=== PATIENT | female | born 1980 | race Caucasian/White ===

== ENCOUNTER 2017-12-24 12:42 | Emergency (ER) | payer MEDICAID ==
[~2017-12-24] VITALS: Ht 160 cm; Wt 97.5 kg
[~2017-12-24 12:42] MED LIST: ALLERCLEAR10 MG PO; BALZIVA1 EACH; BENZTROPINE MES1 MG PO; CLOTRIMAZOLE AF30 GM TOP; DESMOPRESSIN A0.2 M2 PO; DIFLUCAN150 M1 PO; GLUCOPHAGE1000 MG PO; INVOKANA100 MG PO; LEXAPRO20 MG PO; LOVASTATIN 20 M20 MG PO; MINOCYCLINE HC100 M2 PO; NYSTATIN CREAM; OLANZAPINE ODT5 MG PO; PROPRANOLOL 1010 MG PO; RISPERDAL2 MG PO; TOPAMAX 100 MG100 MG PO; TOPAMAX25 M1 PO; ZYPREXA20 MG PO
[2017-12-24] MEDS ORDERED: VICTOZA0.6 MG/0.1 SUBQ (12:50)
[2017-12-24] MEDS ORDERED: LIPITOR10 MG PO (12:50)
[2017-12-24] MEDS ORDERED: LANTUS100 UNIT/M SUBQ (12:51)
[2017-12-24 13:21] LABS: URINE BILIRUBIN NEGATIVE (Negative); URINE BLOOD TRACE (Negative); URINE CLARITY CLEAR; URINE COLOR YELLOW; URINE GLUCOSE-RANDOM 3+ (Negative); URINE KETONES NEGATIVE (Negative); URINE LEUKOCYTES-REFLEX NEGATIVE (Negative); URINE NITRITE-REFLEX NEGATIVE (Negative); URINE PROTEIN NEGATIVE (Negative); URINE UROBILINOGEN 0.2 E.U./dl (0.2-1.0)
[2017-12-24 14:00] LABS: ABSOLUTE BASOPHILS 0.1 thou/uL (0.0-0.2); ABSOLUTE EOSINOPHILS 0.1 thou/uL (0.0-0.7); ABSOLUTE LYMPHOCYTES 1.9 thou/uL (0.8-5.3); ABSOLUTE MONOCYTES 0.3 thou/uL (0.0-1.2); ABSOLUTE NEUTROPHILS 3.7 thou/uL (1.6-8.1); BASOPHILS 0.8 %; EOSINOPHILS 2.4 %; HEMATOCRIT 37.7 % (37.0-47.0); HEMOGLOBIN 12.5 gm/dL (12.0-15.0); LYMPHOCYTES 31.1 %; MCH 27.6 pg (26.0-34.0); MCHC 33.1 g/dL (28.0-37.0); MCV 83.4 fL (80.0-100.0); MONOCYTES 4.6 %; MPV 7.3 fl. (7.2-11.1); NUCLEATED RBCS 0 /100WBC; PLATELET COUNT* 255 thou/uL (150-400); POLYS 61.1 %; RBC 4.52 mil/uL (4.20-5.00); WBC 6.1 thou/uL (4.0-11.0)
[2017-12-24 14:09] LABS: POTASSIUM 4.4 mmol/L (3.5-5.1)
[2017-12-24 14:19] LABS: TOTAL BILIRUBIN 0.3 mg/dL (<0.1-1.0); TOTAL PROTEIN 6.8 g/dL (6.4-8.2)
[2017-12-24 15:04] VITALS: BP 132/82
== END 2017-12-24 15:05 | disposition home or self-care (01) ==
LOC: M.ERS 12:42
PROVIDERS: Physician Assistant
DX: E11.65 Type 2 diabetes mellitus with hyperglycemia (principal); Z79.4 Long term (current) use of insulin

== ENCOUNTER 2018-02-28 15:43 | Emergency (ER) | payer MEDICAID ==
[~2018-02-28] VITALS: Ht 160 cm; Wt 100.2 kg
[~2018-02-28 15:43] MED LIST changes: +LANTUS100 UNIT/M SUBQ; +LIPITOR10 MG PO; +VICTOZA0.6 MG/0.1 SUBQ
[2018-02-28] MEDS ORDERED: ZYPREXA20 MG PO (16:06)
[2018-02-28 16:29] LABS: URINE BILIRUBIN NEGATIVE (Negative); URINE BLOOD NEGATIVE (Negative); URINE CLARITY CLEAR; URINE COLOR YELLOW; URINE GLUCOSE-RANDOM 3+ (Negative); URINE KETONES TRACE (Negative); URINE LEUKOCYTES-REFLEX NEGATIVE (Negative); URINE NITRITE-REFLEX NEGATIVE (Negative); URINE PROTEIN NEGATIVE (Negative); URINE SPECIFIC GRAVITY >= 1.030 (1.005-1.030); URINE UROBILINOGEN 0.2 E.U./dl (0.2-1.0)
[2018-02-28 16:43] LABS: AMP/METHAMP Negative (Negative); BARBITURATES Negative (Negative); BENZODIAZEPINES Negative (Negative); COCAINE Negative (Negative); METHADONE Negative (Negative); OPIATES Negative (Negative); PCP Negative (Negative); THC Negative (Negative)
[2018-02-28 16:50] LABS: ABSOLUTE EOSINOPHILS 0.1 thou/uL (0.0-0.7); ABSOLUTE LYMPHOCYTES 1.9 thou/uL (0.8-5.3); ABSOLUTE MONOCYTES 0.3 thou/uL (0.0-1.2); ABSOLUTE NEUTROPHILS 2.4 thou/uL (1.6-8.1); BASOPHILS 0.8 %; EOSINOPHILS 2.5 %; HEMATOCRIT 38.6 % (37.0-47.0); HEMOGLOBIN 12.4 gm/dL (12.0-15.0); LYMPHOCYTES 39.3 %; MCH 26.4 pg (26.0-34.0); MCHC 32.2 g/dL (28.0-37.0); MCV 82.2 fL (80.0-100.0); MONOCYTES 6.4 %; MPV 7.2 fl. (7.2-11.1); NUCLEATED RBCS 0 /100WBC; PLATELET COUNT* 288 thou/uL (150-400); RBC 4.69 mil/uL (4.20-5.00); RDW-CV 13.9 % (10.5-14.5); WBC 4.7 thou/uL (4.0-11.0)
[2018-02-28 16:59] LABS: CALCIUM 8.9 mg/dL (8.5-10.1); CREATININE 1.2 mg/dL (0.6-1.3); POTASSIUM 4.8 mmol/L (3.5-5.1)
[2018-02-28 17:04] LABS: TOTAL BILIRUBIN 0.2 mg/dL (<0.1-1.0); TOTAL PROTEIN 7.1 g/dL (6.4-8.2)
[2018-02-28 17:13] LABS: SALICYLATE < 2.8 mg/dL (2.8-20.0)
[2018-02-28 17:18] LABS: ACETAMINOPHEN < 2 ug/mL (10-30); ALCOHOL < 10 mg/dL (<10)
[2018-02-28 18:52] VITALS: BP 121/80
== END 2018-02-28 18:53 | disposition home or self-care (01) ==
LOC: M.ERS 15:43
PROVIDERS: Emergency Medicine Emergency Medical Services
DX: F32.9 Major depressive disorder, single episode, unspecified (principal); E11.9 Type 2 diabetes mellitus without complications; F25.9 Schizoaffective disorder, unspecified; F84.0 Autistic disorder

== ENCOUNTER 2018-03-05 19:07 | Emergency (ER) | payer MEDICAID ==
[~2018-03-05] VITALS: Ht 160 cm; Wt 97.5 kg
[2018-03-05 19:28] LABS: URINE BLOOD 2+ (Negative); URINE CLARITY CLEAR; URINE COLOR YELLOW; URINE GLUCOSE-RANDOM NEGATIVE (Negative); URINE KETONES NEGATIVE (Negative); URINE LEUKOCYTES-REFLEX NEGATIVE (Negative); URINE NITRITE-REFLEX NEGATIVE (Negative); URINE PROTEIN 1+ (Negative); URINE SPECIFIC GRAVITY >= 1.030 (1.005-1.030); URINE UROBILINOGEN 0.2 E.U./dl (0.2-1.0)
[2018-03-05 19:30] LABS: ICTOTEST (BILI CONFIRMATORY) Negative (Negative); URINE BILIRUBIN 1+ (Negative)
[2018-03-05 19:32] LABS: AMP/METHAMP Negative (Negative); BARBITURATES Negative (Negative); BENZODIAZEPINES Negative (Negative); COCAINE Negative (Negative); METHADONE Negative (Negative); OPIATES Negative (Negative); PCP Negative (Negative); THC Negative (Negative)
[2018-03-05 19:36] LABS: AMORPHOUS URATES Few /LPF (None Seen); HYALINE CASTS 0-3 Few /LPF (None Seen); MUCUS >6 Heavy strn/LPF (None Seen); SQUAMOUS >10 Many /LPF (0-3); URINE RBC 0-2 Rare /HPF (0-2); URINE WBC-REFLEX 6-15 Few /HPF (0-5)
[2018-03-05 19:41] LABS: ABSOLUTE BASOPHILS 0.1 thou/uL (0.0-0.2); ABSOLUTE EOSINOPHILS 0.1 thou/uL (0.0-0.7); ABSOLUTE LYMPHOCYTES 2.4 thou/uL (0.8-5.3); ABSOLUTE MONOCYTES 0.3 thou/uL (0.0-1.2); ABSOLUTE NEUTROPHILS 3.1 thou/uL (1.6-8.1); BASOPHILS 0.9 %; EOSINOPHILS 2.5 %; HEMATOCRIT 41.3 % (37.0-47.0); HEMOGLOBIN 13.5 gm/dL (12.0-15.0); LYMPHOCYTES 39.2 %; MCH 26.9 pg (26.0-34.0); MCHC 32.8 g/dL (28.0-37.0); MCV 82.1 fL (80.0-100.0); MONOCYTES 5.7 %; MPV 7.6 fl. (7.2-11.1); NUCLEATED RBCS 0 /100WBC; PLATELET COUNT* 323 thou/uL (150-400); POLYS 51.7 %; RBC 5.03 mil/uL (4.20-5.00); RDW-CV 13.6 % (10.5-14.5); WBC 6.1 thou/uL (4.0-11.0)
[2018-03-05 19:49] LABS: CALCIUM 9.4 mg/dL (8.5-10.1); CREATININE 1.4 mg/dL (0.6-1.3); POTASSIUM 4.1 mmol/L (3.5-5.1)
[2018-03-05 19:53] LABS: ALBUMIN 3.2 g/dL (3.4-5.0); TOTAL BILIRUBIN 0.3 mg/dL (<0.1-1.0); TOTAL PROTEIN 7.2 g/dL (6.4-8.2)
[2018-03-05 20:00] LABS: SALICYLATE < 2.8 mg/dL (2.8-20.0)
[2018-03-05 20:01] LABS: ACETAMINOPHEN < 2 ug/mL (10-30); ALCOHOL < 10 mg/dL (<10)
[2018-03-06 22:07] VITALS: BP 131/78
== END 2018-03-06 22:09 | disposition home or self-care (01) ==
LOC: M.ERS
PROVIDERS: Emergency Medicine
DX: R45.851 Suicidal ideations (principal); E11.9 Type 2 diabetes mellitus without complications; F32.9 Major depressive disorder, single episode, unspecified; F84.0 Autistic disorder

== ENCOUNTER 2018-08-19 09:08 | Emergency (ER) | payer MEDICAID ==
[~2018-08-19] VITALS: Ht 160 cm; Wt 112.5 kg
[2018-08-19] MEDS ORDERED: NOVOLOG100 UNIT/1 SUBQ (09:18)
[2018-08-19 09:30] LABS: ABSOLUTE EOSINOPHILS 0.1 thou/uL (0.0-0.7); ABSOLUTE LYMPHOCYTES 1.6 thou/uL (0.8-5.3); ABSOLUTE MONOCYTES 0.3 thou/uL (0.0-1.2); BASOPHILS 0.9 %; EOSINOPHILS 2.9 %; HEMATOCRIT 40.4 % (37.0-47.0); HEMOGLOBIN 13.4 gm/dL (12.0-15.0); MCH 26.9 pg (26.0-34.0); MCV 81.4 fL (80.0-100.0); MONOCYTES 6.5 %; MPV 8.2 fl. (7.2-11.1); NUCLEATED RBCS 0 /100WBC; PLATELET COUNT* 249 thou/uL (150-400); POLYS 57.7 %; RBC 4.97 mil/uL (4.20-5.00); RDW-CV 15.6 % (10.5-14.5); WBC 5.1 thou/uL (4.0-11.0)
[2018-08-19 09:37] LABS: CREATININE 1.1 mg/dL (0.6-1.3); POTASSIUM 4.4 mmol/L (3.5-5.1)
[2018-08-19 09:42] LABS: ALBUMIN 3.2 g/dL (3.4-5.0); TOTAL BILIRUBIN 0.2 mg/dL (<0.1-1.0)
[2018-08-19 10:36] LABS: URINE BILIRUBIN NEGATIVE (Negative); URINE BLOOD TRACE (Negative); URINE CLARITY CLEAR; URINE COLOR YELLOW; URINE GLUCOSE-RANDOM NEGATIVE (Negative); URINE KETONES NEGATIVE (Negative); URINE LEUKOCYTES-REFLEX TRACE (Negative); URINE NITRITE-REFLEX NEGATIVE (Negative); URINE PROTEIN NEGATIVE (Negative); URINE UROBILINOGEN 0.2 E.U./dl (0.2-1.0)
[2018-08-19 10:43] LABS: BACTERIA-REFLEX 1-9 Few /HPF (None Seen); SQUAMOUS 0-3 Few /LPF (0-3); URINE RBC 0-2 Rare /HPF (0-2); URINE WBC-REFLEX 0-5 Rare /HPF (0-5)
[2018-08-19 10:44] LABS: CASTS None Seen /LPF (None Seen); CRYSTALS None Seen /LPF (None Seen); MUCUS None Seen strn/LPF (None Seen)
[2018-08-19 10:46] LABS: AMP/METHAMP Negative (Negative); BARBITURATES Negative (Negative); BENZODIAZEPINES Negative (Negative); COCAINE Negative (Negative); METHADONE Negative (Negative); OPIATES Negative (Negative); PCP Negative (Negative); THC Negative (Negative)
[2018-08-19 11:41] VITALS: BP 156/80
--- NOTE | 2018-08-21 15:31 | EKG ---
[place] [address] ELECTROCARDIOGRAM REPORT Name: WENDYLULU Sebastian Room: [place]#: [id number] Admission: 08/19/18 Attend Phys: Discharge: 08/19/18 Date of : 84 Report #: [id number] THIS REPORT FOR: //name// [facility] ED Test Date: 2018-08-19 Test Time: 09:15:14 Pat Name: LULU NGUYEN Department: Room: Gender: F [employer]pper Machine Operator: : 1980 Requested By: Ann Marie Ashraf Order Number: [id number] MD: Brennen Gregg Measurements Intervals [place] Rate: 64 P: 29 OR: 156 QRS: 61 QRSD: 94 T: 22 QT: 389 QTc: 402 Interpretive Statements Sinus rhythm RSR' in V1 or V2, right VCD or RVH No previous ECG available for comparison Electronically Signed On 08-21-2018 15:31:07 GRIND OPERATOR by Brennen Gregg [email or web address] <ELECTRONICALLY SIGNED> By: Brennen Gregg MD, [facility] 08/21/18 1531 0915 4 Brennen Gregg MD, FACC /EPI
== END 2018-08-19 11:41 | disposition home or self-care (01) ==
LOC: M.ERS 09:08
PROVIDERS: Personal Emergency Response Attendant
DX: R00.2 Palpitations (principal); E11.9 Type 2 diabetes mellitus without complications; F32.9 Major depressive disorder, single episode, unspecified; Z79.4 Long term (current) use of insulin; Z79.899 Other long term (current) drug therapy

== ENCOUNTER 2019-03-17 09:08 | Emergency (ER) | payer MEDICAID ==
[~2019-03-17] VITALS: Ht 165.1 cm; Wt 108.9 kg
[~2019-03-17 09:08] MED LIST changes: +NOVOLOG100 UNIT/1 SUBQ
[2019-03-17] MEDS ORDERED: BACTRIM DS TAB1 EACH PO (10:14)
[2019-03-17] MEDS ORDERED: KEFLEX500 M1 PO (10:14)
[2019-03-17 10:43] VITALS: BP 152/91
== END 2019-03-17 10:44 | disposition home or self-care (01) ==
LOC: M.ERS 09:08
DX: L02.214 Cutaneous abscess of groin (principal); E11.9 Type 2 diabetes mellitus without complications; F32.9 Major depressive disorder, single episode, unspecified

== ENCOUNTER 2019-11-28 10:24 | Emergency (ER) | payer MEDICAID ==
[~2019-11-28] VITALS: Ht 160 cm; Wt 94.3 kg
[~2019-11-28 10:24] MED LIST changes: +BACTRIM DS TAB1 EACH PO; +KEFLEX500 M1 PO
[2019-11-28 10:35] VITALS: BP 131/83
[2019-11-28] MEDS ORDERED: INVEGA6 MG PO (10:42)
[2019-11-28] MEDS ORDERED: BACTRIM DS TAB1 EACH PO (10:56)
[2019-11-28] MEDS ORDERED: KEFLEX500 M1 PO (10:56)
[2019-11-28] MEDS ORDERED: ZOFRAN ODT4 MG SUBLING (10:56)
[2019-11-28] MEDS ORDERED: NORCO 5-325 TA1 EAC1 PO (10:56)
[2019-11-28] MEDS ORDERED: DIFLUCAN150 MG PO (10:56)
== END 2019-11-28 11:18 | disposition home or self-care (01) ==
LOC: M.ERS 10:24
DX: L03.113 Cellulitis of right upper limb (principal); L02.411 Cutaneous abscess of right axilla; E11.9 Type 2 diabetes mellitus without complications; F32.9 Major depressive disorder, single episode, unspecified; F20.9 Schizophrenia, unspecified; Z79.4 Long term (current) use of insulin; Z79.899 Other long term (current) drug therapy

== ENCOUNTER → 2020-07-24 | Outpatient (CLI) | payer MEDICAID ==
[~2020-07-24] MED LIST changes: +DIFLUCAN150 MG PO; +INVEGA6 MG PO; +MACROBID 100 M100 M1 PO; +NORCO 5-325 TA1 EAC1 PO; +PYRIDIUM100 M1 PO; +VRAYLAR1.5 MG PO; +ZOFRAN ODT4 MG SUBLING
[2020-07-24 10:37] LABS: ANION GAP 11 mmol/L (7-16); BUN 15 mg/dL (7-18); CALCIUM 9.5 mg/dL (8.5-10.1); CHLORIDE 101 mmol/L (98-107); CHOLESTEROL 187 mg/dL (<200); CO2 25 mmol/L (21-32); GLUCOSE 103 mg/dL (70-99); HDL CHOLESTEROL 87 mg/dL (>40); LDL CHOLESTEROL 85 mg/dL (<100); POTASSIUM 3.8 mmol/L (3.5-5.1); SODIUM 137 mmol/L (136-145); TC:HDL 2.1 Ratio (Not establshd); TRIGLYCERIDE 75 mg/dL (<150); VLDL 15 mg/dL (<40)
[2020-07-24 10:39] LABS: SERUM ASSESSMENT Clear
== END ==
LOC: M.CT 07-16 11:00 → M.LAB 09:52 → M.CT 11:30
DX: R63.4 Abnormal weight loss (principal)

== ENCOUNTER 2020-07-28 10:11 | Emergency (ER) | payer MEDICAID ==
[~2020-07-28] VITALS: Ht 160 cm; Wt 70.3 kg
[~2020-07-28 10:11] MED LIST changes: -MACROBID 100 M100 M1 PO; -PYRIDIUM100 M1 PO; -VRAYLAR1.5 MG PO
[2020-07-28] MEDS ORDERED: VRAYLAR1.5 MG PO (10:19)
[2020-07-28 10:51] LABS: URINE BLOOD NEGATIVE (Negative); URINE CLARITY SL CLOUDY; URINE COLOR YELLOW; URINE GLUCOSE-RANDOM TRACE (Negative); URINE KETONES NEGATIVE (Negative); URINE LEUKOCYTES-REFLEX NEGATIVE (Negative); URINE NITRITE-REFLEX NEGATIVE (Negative); URINE PROTEIN TRACE (Negative); URINE SPECIFIC GRAVITY >= 1.030 (1.005-1.030); URINE UROBILINOGEN 0.2 E.U./dl (0.2-1.0)
[2020-07-28 10:55] LABS: ICTOTEST (BILI CONFIRMATORY) Negative (Negative); URINE BILIRUBIN 2+ (Negative)
[2020-07-28 10:57] LABS: SQUAMOUS >10 Many /LPF (0-3)
[2020-07-28 10:58] LABS: BACTERIA-REFLEX >30 Many /HPF (None Seen); CALCIUM OXALATE 4-10 Moderate /LPF (None Seen); CASTS None Seen /LPF (None Seen); MUCUS >6 Heavy strn/LPF (None Seen); URINE RBC 0-2 Rare /HPF (0-2); URINE WBC-REFLEX 0-5 Rare /HPF (0-5)
[2020-07-28] MEDS ORDERED: DIFLUCAN150 MG PO (11:27)
[2020-07-28] MEDS ORDERED: PYRIDIUM100 M1 PO (11:27)
[2020-07-28] MEDS ORDERED: MACROBID 100 M100 M1 PO (11:27)
[2020-07-28 11:40] VITALS: BP 130/72
== END 2020-07-28 11:41 | disposition home or self-care (01) ==
LOC: M.ERS 10:11
PROVIDERS: Family Medicine
DX: N39.0 Urinary tract infection, site not specified (principal); E11.9 Type 2 diabetes mellitus without complications

== ENCOUNTER → 2020-09-06 | Outpatient (CLI) | payer MEDICAID ==
[~2020-09-06] MED LIST changes: +MACROBID 100 M100 M1 PO; +PYRIDIUM100 M1 PO; +VRAYLAR1.5 MG PO
== END ==
LOC: M.ULTRA 07:50
PROVIDERS: ATTEND Nurse Practitioner Adult Health
DX: K76.0 Fatty (change of) liver, not elsewhere classified (principal); R63.4 Abnormal weight loss